=== PATIENT | female | born 1990 | race Two or more races ===

== ENCOUNTER 2022-06-10 08:15 | Emergency (ER) | payer SELFPAY ==
[~2022-06-10] VITALS: Ht 162.6 cm; Wt 54.4 kg
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
[2022-06-10] MEDS ORDERED: ACETAMINOPHEN 325 MG TABLET ONE (09:22)
[2022-06-10] MEDS ORDERED: ACETAMINOPHEN 325 MG TABLET PO ONE (09:30)
[2022-06-10 11:28] VITALS: BP 103/74
--- NOTE | 2022-06-10 11:28 | NUR ---
Patient discharged to home in stable condition. Written and verbal after care instructions given. Patient verbalizes understanding of instruction.
== END 2022-06-10 11:29 | disposition home or self-care (01) ==
LOC: ER 08:18
DX: M25.511 Pain in right shoulder (principal); Y08.89XA Assault by other specified means, initial encounter; Y93.89 Activity, other specified; Y92.89 Other specified places as the place of occurrence of the external cause; Y99.8 Other external cause status
CPT/HCPCS: 73030-TC